=== PATIENT | female | born 1965 | race African-American/Black ===

== ENCOUNTER 2017-01-12 18:08 | Emergency (ER) | payer MEDICAID ==
[~2017-01-12] VITALS: Ht 160 cm; Wt 60.0 kg
[2017-01-12 18:14] VITALS: BP 162/100
== END 2017-01-12 19:30 | disposition left against medical advice (07) ==
LOC: ER 18:08
DX: R10.9 Unspecified abdominal pain (principal); Z53.21 Procedure and treatment not carried out due to patient leaving prior to being seen by health care provider

== ENCOUNTER 2023-01-10 02:20 | Emergency (ER) | payer MEDICAID, OTHER ==
[~2023-01-10] VITALS: Ht 157.5 cm; Wt 61.0 kg
[2023-01-10 02:25] VITALS: BP 145/65; TEMP 98; O2SAT 97
[2023-01-10 02:26] VITALS: PULSE 109
== END 2023-01-10 04:05 | disposition left against medical advice (07) ==
LOC: ER 02:20
DX: Z53.21 Procedure and treatment not carried out due to patient leaving prior to being seen by health care provider (principal)
CPT/HCPCS: 99281